=== PATIENT | male | born 1960 | race Caucasian/White ===

== ENCOUNTER 2016-10-11 18:59 | Emergency (ER) | payer MEDICARE, OTHER ==
[~2016-10-11] VITALS: Ht 182.9 cm; Wt 105.0 kg
[~2016-10-11 18:59] MED LIST: ALBU6.7H INH; AZIT250T3 PO; MORP1CAP63 PO; PERC5TAB12 PO; PRED20 PO
[2016-10-11 19:00] VITALS: BP 149/83; PULSE 80; RESP 16; TEMP 98.1; O2SAT 94
[2016-10-11] MEDS ORDERED: PERC5TAB12 PO (19:16)
[2016-10-11] MEDS ORDERED: MORP1TAB25 PO (19:16)
[2016-10-11 19:25] VITALS: BP 135/85; PULSE 88; RESP 16; TEMP 98.1; O2SAT 96
[2016-10-11 19:36] VITALS: BP_SYST 135; BP_SYST 137; BP_DIAS 80; BP_DIAS 85; PULSE 78; RESP 20; TEMP 98; O2SAT 98
[2016-10-11 19:38] VITALS: RESP 20
[2016-10-11] MEDS ORDERED: SODIUM CHLORIDE 0.9% FLUSH 5 ML FLUSH IVF PRN (19:45)
[2016-10-11 20:04] LABS: AUTOMATED NEUTROPHIL # 3.9 TH/MM3 (1.8-7.7); BASOPHIL % 0.3 % (0.0-2.0); EOSINOPHIL # 0.1 TH/MM3 (0-0.4); EOSINOPHIL % 1.8 % (0.0-4.0); HEMATOCRIT 43.7 % (39.0-51.0); HEMO FLAGS DIFF FINAL; LYMPH % 26.7 % (9.0-44.0); LYMPHOCYTE # 1.6 TH/MM3 (1.0-4.8); MEAN CELL VOLUME 91.1 FL (80.0-100.0); MEAN CORPUSCULAR HEMOGLOBIN 31.8 PG (27.0-34.0); MEAN CORPUSCULAR HGB CONC 34.9 % (32.0-36.0); NEUT % 65.2 % (16.0-70.0); PLATELET COUNT 211 TH/MM3 (150-450); RED CELL DISTRIBUTION WIDTH 13.2 % (11.6-17.2)
--- NOTE | 2016-10-11 20:08 | PD ---
HPI Chief Complaint: Respiratory Symptoms Time Seen by Provider: 19:20 Travel History International Travel<30 days: No Contact w/Intl Traveler<30days: No Traveled to known affect area: No History of Present Illness HPI 56 y/o male presents with cough and congestion with associated chest tightness over the past couple of days that feels like his usual episode of bronchitis that he gets about this time of year. He denies any sick contacts. He denies other concurrent complaints other than his chronic back pain. He denies other associated symptoms with his back pain such as incontinence, weakness, fever, trauma or other associated symptoms. He states he had MRI of his back a couple years ago and follows this with his primary doctor with injections. He states he has not followed his acute symptoms with his physician Dr. Wahl. He states the last time he had a heart workup was a couple years ago when he had stomach surgery and it was normal. He denies any heart issues. PFSH Past Medical History Arthritis: Yes Autoimmune Disease: No Cancer: No Cardiovascular Problems: No High Cholesterol: Yes Chemotherapy: No Chest Pain: No Congestive Heart Failure: No Cerebrovascular Accident: No Diabetes: Yes (DIET CONTROLLED) Patient Takes Glucophage: No Diminished Hearing: No Endocrine: No Gastrointestinal Disorders: Yes (DIARRHEA, FOOD GETS CAUGHT IN ESOPHAGUS) GERD: No Genitourinary: No Headaches: Yes Hepatitis: No Hiatal Hernia: Yes Hypertension: Yes Immune Disorder: No Musculoskeletal: Yes (arthritis in the neck and generally all over hx of neck fracture) Neurologic: Yes (HEADACHES ) Psychiatric: No Reproductive: No Respiratory: No Immunizations Current: No Radiation Therapy: No Seizures: No Thyroid Disease: No Ulcer: No Tetanus Vaccination: Unknown Influenza Vaccination: No Past Surgical History Abdominal Surgery: Yes (3 SURGERIES HIATAL HERNIA REPAIR, LOWER BOWEL OBSTRUCTION, CHOLY) AICD: No Body Medical Devices: CERVICAL HARDWARE, plastic ear drum left side, MESH IN ABDOMEN Cardiac Surgery: No Cholecystectomy: Yes (AUGUST 2013) Ear Surgery: Yes (plastic ear drum left side) Endocrine Surgery: No Eye Surgery: No Genitourinary Surgery: No Gynecologic Surgery: No Joint Replacement: No Neurologic Surgery: Yes (C5-C6 FUSION X2) Oral Surgery: No Pacemaker: No Thoracic Surgery: No Social History Alcohol Use: Yes (OCCASSIONAL) Tobacco Use: No Substance Use: No Allergies-Medications (Allergen,Severity, Reaction): Coded Allergies: No Known Allergies (Verified , 2/4/17) Reported Meds & Prescriptions Reported Meds & Active Scripts Active Reported Morphine ER (Morphine Sulfate) 30 Mg Tab 30 Mg PO BID Percocet (Oxycodone-Acetaminophen) 5-325 mg Tab 1 Tab PO Q6H PRN Review of Systems Except as stated in HPI: all other systems reviewed are Neg Physical Exam Narrative GENERAL: Well-nourished, well-developed patient. SKIN: Warm and dry. HEAD: Normocephalic and atraumatic. EYES: No injection or drainage. ENT: No nasal drainage noted. NECK: Supple, trachea midline. CARDIOVASCULAR: Regular rate and rhythm RESPIRATORY: Breath sounds equal bilaterally. No accessory muscle use. GASTROINTESTINAL: Abdomen soft, non-tender, nondistended. EXTREMITIES: No edema. Back: Tender to bilateral lumbar paraspinal, no CVA tenderness NEUROLOGICAL: Awake and alert. Motor and sensory grossly within normal limits. Normal speech. Data Data Last Documented VS Vital Signs Date Time Temp Pulse Resp B/P Pulse Ox O2 Delivery O2 Flow Rate FiO2 10/11/16 20:35 20 10/11/16 19:36 98.0 78 135/85 98 Room Air 137/80 Orders Chest, Pa & Lat (10/11/16 ) Influenzae A/B Antigen (10/11/16 19:21) Electrocardiogram (10/11/16 19:33) Ckmb (Isoenzyme) Profile (10/11/16 19:33) Complete Blood Count With Diff (10/11/16 19:33) Comprehensive Metabolic Panel (10/11/16 19:33) Magnesium (Mg) (10/11/16 19:33) Prothrombin Time / Inr (Pt) (10/11/16 19:33) Act Partial Throm Time (Ptt) (10/11/16 19:33) Troponin I (10/11/16 19:33) Lipase (10/11/16 19:33) Ecg Monitoring (10/11/16 19:33) Bilateral Bp Monitoring (10/11/16 19:33) Iv Access Insert/Monitor (10/11/16 19:33) Oximetry (10/11/16 19:33) Sodium Chloride 0.9% Flush (Ns Flush) (10/11/16 19:45) Nitroglycerin Sl (Nitrostat Sl) (10/11/16 20:30) Labs Laboratory Tests Test 10/11/16 19:35 White Blood Count 6.0 TH/MM3 Red Blood Count 4.80 MIL/MM3 Hemoglobin 15.3 GM/DL Hematocrit 43.7 % Mean Corpuscular Volume 91.1 FL Mean Corpuscular Hemoglobin 31.8 PG Mean Corpuscular Hemoglobin 34.9 % Concent Red Cell Distribution Width 13.2 % Platelet Count 211 TH/MM3 Mean Platelet Volume 7.4 FL Neutrophils (%) (Auto) 65.2 % Lymphocytes (%) (Auto) 26.7 % Monocytes (%) (Auto) 6.0 % Eosinophils (%) (Auto) 1.8 % Basophils (%) (Auto) 0.3 % Neutrophils # (Auto) 3.9 TH/MM3 Lymphocytes # (Auto) 1.6 TH/MM3 Monocytes # (Auto) 0.4 TH/MM3 Eosinophils # (Auto) 0.1 TH/MM3 Basophils # (Auto) 0.0 TH/MM3 CBC Comment DIFF FINAL Differential Comment Prothrombin Time 10.0 SEC Prothromb Time International 0.9 RATIO Ratio Activated Partial 26.8 SEC Thromboplast Time Sodium Level 139 MEQ/L Potassium Level 3.9 MEQ/L Chloride Level 102 MEQ/L Carbon Dioxide Level 29.5 MEQ/L Anion Gap 8 MEQ/L Blood Urea Nitrogen 12 MG/DL Creatinine 1.18 MG/DL Estimat Glomerular Filtration 64 ML/MIN Rate Random Glucose 306 MG/DL Calcium Level 9.0 MG/DL Magnesium Level 2.1 MG/DL Total Bilirubin 0.3 MG/DL Aspartate Amino Transf 23 U/L (AST/SGOT) Alanine Aminotransferase 70 U/L (ALT/SGPT) Alkaline Phosphatase 85 U/L Total Creatine Kinase 79 U/L Troponin I LESS THAN 0.02 NG/ML Total Protein 7.3 GM/DL Albumin 3.9 GM/DL Lipase 154 U/L MDM Medical Decision Making Medical Screen Exam Complete: Yes Emergency Medical Condition: Yes Medical Record Reviewed: Yes (pmh confirmed) Interpretation(s) EKG shows NSR, no ST elevation or depression, and no arrhythmias. No significant T-wave inversions. CBC & BMP Diagram 10/11/16 19:35 Last 24 hours Impressions Chest X-Ray 10/11/16 0000 Signed Impressions: Service Date/Time: Tuesday, October 11, 2016 20:10 - CONCLUSION: 1. No active disease. Sylvester James MD Differential Diagnosis Pneumonia, URI, atypical cardiac, pancreatitis, gastritis.... Narrative Course Will check blood work, chest x-ray, influenza and reevaluate ed workup no acute, pain improved with nitroglycerin, advised patient I recommend chest pain observation overnight given his risk factors with this symptom of chest tightness.patient states he will leave AMA: The risks of leaving against medical advice without further evaluation treatment were discussed with the patient. These risks include cardiac dysfunction, cardiac dysrhythmia, possible heart attack, possible stroke or . The patient indicated understanding of these risks and appeared to have the capacity to make this decision. He states he'll follow with his primary Thursday Diagnosis Primary Impression: Chest pain Qualified Code: R07.9 - Chest pain, unspecified type Additional Impression: Cough Patient Instructions: General Instructions Med/Other Pt SpecificInfo: No Change to Meds Disposition: 07 AGAINST MEDICAL ADVICE Condition: Stable Rebekah Ordoñez MD Oct 11, 2016 20:08
[2016-10-11 20:18] LABS: APTT (PATIENT) 26.8 SEC (24.3-30.1); INTERNATIONAL NORMALIZED RATIO 0.9 RATIO
[2016-10-11 20:27] LABS: ALT (GPT) 70 U/L (12-78); ANION GAP 8 MEQ/L (5-15); AST (GOT) 23 U/L (15-37); BICARBONATE 29.5 MEQ/L (21.0-32.0); BLOOD UREA NITROGEN 12 MG/DL (7-18); CHLORIDE 102 MEQ/L (98-107); GLOMERULAR FILTRATION RATE 64 ML/MIN (>89); MAGNESIUM 2.1 MG/DL (1.5-2.5); POTASSIUM 3.9 MEQ/L (3.5-5.1); SODIUM (NA) 139 MEQ/L (136-145)
[2016-10-11] MEDS ORDERED: NITROGLYCERIN 0.4 MG SL 25 TABS/BTL SL ONE (20:30)
[2016-10-11 20:32] LABS: ALKALINE PHOSPHATASE 85 U/L (45-117); TOTAL BILIRUBIN ADULT 0.3 MG/DL (0.2-1.0)
[2016-10-11 20:35] VITALS: RESP 20
[2016-10-11 20:43] LABS: CREATINE KINASE 79 U/L (39-308)
--- NOTE | 2016-10-11 21:34 | RADRPT ---
EXAM DATE/TIME: 10/11/2016 20:10 [facility] COMPARISON: CHEST PA & LAT, July 09, 2016, 16:03. INDICATIONS : Cough, Short of Breath, Chest Discomfort. MEDICAL HISTORY : Hypercholesterolemia. Hiatal hernia. Arthritis. Diabetes. SURGICAL HISTORY : Cholecystectomy. Ear surgery. Spinal fusion. Hernia repair. Bowel obstruction repair. ENCOUNTER: Initial ACUITY: 1 day PAIN SCORE: 2/10 LOCATION: Bilateral chest FINDINGS: PA and lateral views of the chest demonstrate the lungs to be symmetrically aerated without evidence of mass, infiltrate or effusion. The cardiomediastinal contours are unremarkable. Osseous structure s are intact. CONCLUSION: 1. No active disease. Sylvester James MD on October 11, 2016 at 21:31 Board Certified Radiologist. This report was verified electronically.
--- NOTE | 2016-10-12 12:53 | EKG ---
Date Performed: 10/11/2016 Time Performed: 19:52:05 PTAGE: 56 years EKG: Sinus rhythm Since previous tracing, no significant change noted NORMAL ECG PREVIOUS TRACING : 10/16/2015 18.35.46 DOCTOR: Carolyn Velsaco Interpretating Date/Time 10/12/2016 12:51:44
== END 2016-10-11 22:15 | disposition left against medical advice (07) ==
LOC: NEPC 18:59
DX: R07.89 Other chest pain (principal); R05 Cough; I10 Essential (primary) hypertension; E11.9 Type 2 diabetes mellitus without complications; M19.90 Unspecified osteoarthritis, unspecified site; Z79.891 Long term (current) use of opiate analgesic
CPT/HCPCS: 71020; 80053; 82550; 83690; 83735; 84484; 85025; 85610; 85730; 87804; 93005

== ENCOUNTER 2016-12-29 10:29 | Emergency (ER) | payer MEDICARE, OTHER ==
[~2016-12-29] VITALS: Ht 182.9 cm; Wt 106.5 kg
[~2016-12-29 10:29] MED LIST changes: -ALBU6.7H INH; -AZIT250T3 PO; -MORP1CAP63 PO; +MORP1TAB25 PO; -PRED20 PO
[2016-12-29 10:31] VITALS: BP 154/84; PULSE 77; RESP 16; TEMP 98.2; O2SAT 98
--- NOTE | 2016-12-29 11:21 | PD ---
HPI . right arm pain Chief Complaint: Injury Time Seen by Provider: 11:21 Travel History International Travel<30 days: No Contact w/Intl Traveler<30days: No Traveled to known affect area: No History of Present Illness HPI 56 year old male here with complaints of falling on his right elbow about one week ago. Patient tells me that he actually hit his elbow and thinks that it may have caused some problems in his shoulder and neck. He does report a history of chronic neck pain and tells me that he needs surgery and will see Dr. Lin for this. He is here for evaluation of his right shoulder pain. He reports difficulty abducting the shoulder. He has very limited range of motion. He is right-hand dominant. He has no other complaints. PFSH Past Medical History Arthritis: Yes Autoimmune Disease: No Cancer: No Cardiovascular Problems: No High Cholesterol: Yes Chemotherapy: No Chest Pain: No Congestive Heart Failure: No Cerebrovascular Accident: No Diabetes: Yes (DIET CONTROLLED) Diminished Hearing: No Endocrine: No Gastrointestinal Disorders: Yes (DIARRHEA, FOOD GETS CAUGHT IN ESOPHAGUS) GERD: No Genitourinary: No Headaches: Yes Hepatitis: No Hiatal Hernia: Yes Hypertension: Yes Immune Disorder: No Musculoskeletal: Yes (arthritis in the neck and generally all over hx of neck fracture) Neurologic: Yes (HEADACHES ) Psychiatric: No Reproductive: No Respiratory: No Immunizations Current: No Radiation Therapy: No Seizures: No Thyroid Disease: No Ulcer: No Past Surgical History Abdominal Surgery: Yes (3 SURGERIES HIATAL HERNIA REPAIR, LOWER BOWEL OBSTRUCTION, CHOLY) AICD: No Body Medical Devices: CERVICAL HARDWARE, plastic ear drum left side, MESH IN ABDOMEN Cardiac Surgery: No Cholecystectomy: Yes (AUGUST 2013) Ear Surgery: Yes (plastic ear drum left side) Endocrine Surgery: No Eye Surgery: No Genitourinary Surgery: No Gynecologic Surgery: No Joint Replacement: No Neurologic Surgery: Yes (C5-C6 FUSION X2) Oral Surgery: No Pacemaker: No Thoracic Surgery: No Social History Alcohol Use: Yes (OCCASSIONAL) Tobacco Use: No Substance Use: No Allergies-Medications (Allergen,Severity, Reaction): Coded Allergies: No Known Allergies (Verified , 12/29/16) Reported Meds & Prescriptions Reported Meds & Active Scripts Active Reported Morphine ER (Morphine Sulfate) 30 Mg Tab 30 Mg PO BID Percocet (Oxycodone-Acetaminophen) 5-325 mg Tab 1 Tab PO Q6H PRN Review of Systems General / Constitutional: No: Fever Eyes: No: Visual changes HENT: No: Headaches Cardiovascular: No: Chest Pain or Discomfort Respiratory: No: Shortness of Breath Gastrointestinal: No: Abdominal Pain Genitourinary: No: Dysuria Musculoskeletal: Positive: Pain (right arm pain ) Skin: No Rash Neurologic: No: Weakness Psychiatric: No: Depression Endocrine: No: Polydipsia Hematologic/Lymphatic: No: Easy Bruising Physical Exam Narrative GENERAL: AAO x 3, no acute distress, Well-nourished, well-developed patient. SKIN: Warm and dry. No visible rashes or bruising. HEAD: Normocephalic and atraumatic. EYES: No scleral icterus. No injection or drainage. ENT: No nasal drainage noted. Mucous membranes pink. Airway patent. NECK: Supple, trachea midline. No JVD. CARDIOVASCULAR: Regular rate and rhythm without murmurs, gallops, or rubs. RESPIRATORY: Breath sounds equal bilaterally. No accessory muscle use. No rhonchi or rales. GASTROINTESTINAL: Visual inspection normal. EXTREMITIES: No cyanosis or edema. Right shoulder with limited ability to abduct, Positive drop arm test, Pain with internal rotation, Elbow with full rom and no deformity. No point tenderness. Left arm normal exam. BACK: Nontender without obvious deformity. No CVA tenderness. PSYCH: AAO x 3, normal affect. Data Data Last Documented VS Vital Signs Date Time Temp Pulse Resp B/P Pulse Ox O2 Delivery O2 Flow Rate FiO2 12/29/16 10:31 98.2 77 16 154/84 98 MDM Medical Decision Making Medical Screen Exam Complete: Yes Emergency Medical Condition: Yes Medical Record Reviewed: Yes Differential Diagnosis acute on chronic pain, neck pain, possible rotator cuff injury Narrative Course 56 year old male here with complaints of falling on his right elbow about one week ago. Patient tells me that he actually hit his elbow and thinks that it may have caused some problems in his shoulder and neck. He does report a history of chronic neck pain and tells me that he needs surgery and will see Dr. Lin for this. He is here for evaluation of his right shoulder pain. He reports difficulty abducting the shoulder. He has very limited range of motion. He is right-hand dominant. He has no other complaints. Patient seen and examined. He appears to have a possible rotator cuff injury. I've explained this to him. He is aware that he will need to see orthopedics. He is going to need an MRI. I've advised him to follow-up with his primary care provider for further recommendations. I offered a course of muscle relaxants to see if this will help relieve his pain , but patient declined. Try over the counter ibuprofen or Motrin as needed. Diagnosis Primary Impression: Right arm pain Additional Impression: Rotator cuff injury Qualified Code: S46.001A - Rotator cuff injury, right, initial encounter Referrals: Orthopedist Patient Instructions: General Instructions Additional Instructions: Please return to emergency department if your symptoms return or worsen. Follow up with your primary care provider. They will be able to order appropriate imaging as we discussed. They may also be able to send you to physical therapy. Please see an orthopedist as soon as possible. Try over the counter motrin and tylenol as needed for pain. Med/Other Pt SpecificInfo: No Change to Meds Disposition: 01 DISCHARGE HOME Condition: Stable Rosanna Ferguson Dec 29, 2016 11:21
== END 2016-12-29 11:58 | disposition home or self-care (01) ==
LOC: NEPK 10:29
DX: S46.001A Unspecified injury of muscle(s) and tendon(s) of the rotator cuff of right shoulder, initial encounter (principal); I10 Essential (primary) hypertension; W19.XXXA Unspecified fall, initial encounter
CPT/HCPCS: 99282